=== PATIENT | female | born 1965 | race African-American/Black ===

== ENCOUNTER 2016-09-02 18:31 | Emergency (ER) | payer OTHER ==
[~2016-09-02] VITALS: Ht 157.5 cm; Wt 88.5 kg
[~2016-09-02 18:31] MED LIST: ACETAMINOPHEN325 M1 PO; ALDACTONE50 MG PO; ALLEGRA-D 24 H1 EACH PO; ALPRAZOLAM 0.50.5 M1 PO; BENADRYL25 MG PO; CEFDINIR300 MG PO; CEFUROXIME500 MG PO; CENTRUM COMPLE1 EACH PO; CLARITIN5 MG PO; CLEOCIN HCL300 MG PO; COLACE 100 MG100 MG PO; CYCLOBENZAPRINE5 MG PO; DILAUDID; DILAUDID 2 MG TA2 MG PO; DILAUDID 4 MG TA4 M1 PO; DILAUDID2 M1 PO; DOXYCYCLINE 10100 M2 PO; ERYTHROMYCIN250 M1 PO; FAMOTIDINE20 MG PO; FLEXERIL PO; FLONASE NS; FOLIC ACID1 MG PO; GLYCOLAX POWDER17 G1 PO; GOLYTELY4000 M1; HYDREA 500 MG500 M1 PO; HYDROCODON-ACE1 EAC7 PO; HYDROCODON-ACE1 EACH PO; Hydromorphone Hcl PO; IBUPROFEN 200200 M1 PO; IBUPROFEN 400400 M1 PO; IBUPROFEN 800 MG PO; IBUPROFEN 800800 M1 PO; LAXATIVE PEG 3317 GM PO; MACROBID 100 M100 M1 PO; MEDROL DOSPAK21 TAB PO; MEDROLDOSEPACK PO; MULTIVITAMINS PO; NORCO 5-325 TA1 EACH PO; NORFLEX100 MG PO; ONDANSETRON HCL4 M2 PO; OXYCODONE HCL5 M1 PO; OXYCONTIN 20 MG PO; OXYCONTIN20 MG PO; OXYIR5 MG PO; PEPCID40 MG PO; PERCOCET; PERCOCET 10-321 EACH PO; PERCOCET 5-3251 EACH PO; PHENERGAN 25 MG25 M1 PO; PROMETHAZINE12.5 M1 PO; SENNA; SENNA PO; SERTRALINE HCL25 M2 PO; Tylenol 325MG Caplet PO; VALIUM2 MG PO; ZOFRAN ODT4 MG PO; ZPAK PO
[2016-09-02 19:49] LABS: ABSOLUTE NEUTROPHILS 10.2 thou/uL (1.4-8.2); ABSOLUTE RETIC COUNT 0.1608 10^6/uL; BASOPHILS 0.7 % (0.0-2.0); EOSINOPHILS 3.3 % (0.0-3.0); HEMATOCRIT 31.1 % (37.0-47.0); HEMOGLOBIN 10.7 gm/dL (12.0-15.0); LYMPHOCYTES 16.9 % (24.0-44.0); MCH 30.3 pg (26.0-34.0); MCHC 34.3 g/dL (28.0-37.0); MCV 88.3 fL (80.0-100.0); MONOCYTES 7.8 % (1.0-8.0); OBSERVED RETIC COUNT 4.56 % (0.6-2.6); PLATELET COUNT 324 thou/uL (150-400); POLYS 71.3 % (36.0-66.0); RBC 3.52 mil/uL (4.20-5.00); RDW 15.9 % (10.5-14.5); WBC 14.4 thou/uL (4.0-11.0)
[2016-09-02 19:51] LABS: MANUAL DIFF NO
== END 2016-09-02 21:21 | disposition home or self-care (01) ==
LOC: ER 18:31
PROVIDERS: Emergency Medicine
DX: D57.00 Hb-SS disease with crisis, unspecified (principal); F10.99 Alcohol use, unspecified with unspecified alcohol-induced disorder; Z90.49 Acquired absence of other specified parts of digestive tract; Z91.048 Other nonmedicinal substance allergy status; Z91.018 Allergy to other foods; Z91.040 Latex allergy status; Z88.1 Allergy status to other antibiotic agents; Z88.5 Allergy status to narcotic agent; Z88.0 Allergy status to penicillin; Z88.8 Allergy status to other drugs, medicaments and biological substances

== ENCOUNTER → 2016-09-05 | Outpatient (CLI) | payer OTHER | LOC: ULTRA 08:56 | DX: R60.0 Localized edema (principal) ==

== ENCOUNTER 2016-10-28 16:48 | Emergency (ER) | payer OTHER ==
[~2016-10-28] VITALS: Ht 157.5 cm; Wt 86.2 kg
== END 2016-10-28 21:01 | disposition home or self-care (01) ==
LOC: ER 16:48
DX: D57.00 Hb-SS disease with crisis, unspecified (principal); Z98.51 Tubal ligation status; Z88.0 Allergy status to penicillin; Z88.5 Allergy status to narcotic agent; Z88.2 Allergy status to sulfonamides; Z88.1 Allergy status to other antibiotic agents; Z88.8 Allergy status to other drugs, medicaments and biological substances; Z91.040 Latex allergy status; Z91.018 Allergy to other foods

== ENCOUNTER 2017-03-15 19:07 | Emergency (ER) | payer OTHER ==
[~2017-03-15] VITALS: Ht 157.5 cm; Wt 87.5 kg
[2017-03-15 21:25] VITALS: BP 157/72
[2017-08-16] MEDS ORDERED: SENNA8.6 MG PO (20:02)
[2017-08-16] MEDS ORDERED: HYDROCODONE-AP1 EAC6 PO (20:02)
[2017-08-16] MEDS ORDERED: LIORESAL 10 MG10 MG PO (20:02)
[2017-10-26] MEDS ORDERED: MOBIC15 MG PO (00:19)
== END 2017-03-15 21:27 | disposition home or self-care (01) ==
LOC: ER 19:07
DX: D57.00 Hb-SS disease with crisis, unspecified (principal); Z90.49 Acquired absence of other specified parts of digestive tract; Z96.641 Presence of right artificial hip joint; Z88.0 Allergy status to penicillin; Z88.2 Allergy status to sulfonamides; Z88.1 Allergy status to other antibiotic agents; Z88.8 Allergy status to other drugs, medicaments and biological substances

== ENCOUNTER 2017-06-26 18:58 | Emergency (ER) | payer OTHER ==
[~2017-06-26] VITALS: Ht 157.5 cm; Wt 89.8 kg
[2017-06-26] MEDS ORDERED: FOLIC ACID1 MG PO (19:14)
== END 2017-06-26 19:56 | disposition home or self-care (01) ==
LOC: ER 18:58
DX: H60.93 Unspecified otitis externa, bilateral (principal); Z96.641 Presence of right artificial hip joint; Z90.49 Acquired absence of other specified parts of digestive tract; Z88.0 Allergy status to penicillin; Z88.2 Allergy status to sulfonamides; Z88.1 Allergy status to other antibiotic agents; Z88.5 Allergy status to narcotic agent

== ENCOUNTER 2017-07-18 20:04 | Emergency (ER) | payer OTHER ==
[~2017-07-18] VITALS: Ht 157.5 cm; Wt 87.5 kg
[2017-07-18 20:58] LABS: URINE BILIRUBIN NEGATIVE (Negative); URINE BLOOD NEGATIVE (Negative); URINE CLARITY CLEAR; URINE COLOR YELLOW; URINE GLUCOSE-RANDOM* NEGATIVE (Negative); URINE KETONES NEGATIVE (Negative); URINE NITRITE-REFLEX NEGATIVE (Negative); URINE PROTEIN (DIPSTICK) NEGATIVE (Negative); URINE SPECIFIC GRAVITY 1.025 (1.005-1.035); URINE UROBILINOGEN 0.2 E.U./dl (0.2-1.0)
[2017-07-18 21:00] LABS: URINE LEUKOCYTES-REFLEX TRACE (Negative)
[2017-07-18 21:18] LABS: EOSINOPHILS 3.9 % (0.0-3.0); HEMATOCRIT 31.4 % (37.0-47.0); HEMOGLOBIN 10.7 gm/dL (12.0-15.0); LYMPHOCYTES 29.7 % (24.0-44.0); MCH 30.6 pg (26.0-34.0); MCHC 34.2 g/dL (28.0-37.0); MCV 89.5 fL (80.0-100.0); MONOCYTES 8.9 % (1.0-8.0); PLATELET COUNT 333 thou/uL (150-400); POLYS 56.5 % (36.0-66.0); RBC 3.51 mil/uL (4.20-5.00); RDW 15.8 % (10.5-14.5); WBC 12.4 thou/uL (4.0-11.0)
[2017-07-18 21:23] LABS: CALCIUM 9.4 mg/dL (8.5-10.1); CREATININE 0.6 mg/dL (0.6-1.0); POTASSIUM 3.7 mmol/L (3.5-5.1)
[2017-07-18 21:29] LABS: TOTAL BILIRUBIN 1.4 mg/dL (<0.1-1.0); TOTAL PROTEIN 8.1 g/dL (6.4-8.2)
[2017-07-18] MEDS ORDERED: LEVSIN0.125 MG PO (23:24)
== END 2017-07-18 23:34 | disposition home or self-care (01) ==
LOC: ER 20:04
PROVIDERS: Physician Assistant
DX: K52.9 Noninfective gastroenteritis and colitis, unspecified (principal); Z96.641 Presence of right artificial hip joint; Z88.5 Allergy status to narcotic agent; Z88.0 Allergy status to penicillin; Z88.8 Allergy status to other drugs, medicaments and biological substances

== ENCOUNTER 2018-01-06 20:52 | Emergency (ER) | payer OTHER ==
[~2018-01-06] VITALS: Ht 157.5 cm; Wt 88.0 kg
[~2018-01-06 20:52] MED LIST changes: +HYDROCODONE-AP1 EAC6 PO; +LEVSIN0.125 MG PO; +LIORESAL 10 MG10 MG PO; +MOBIC15 MG PO; +SENNA8.6 MG PO
[2018-01-06 20:58] VITALS: BP 120/67
[2018-01-06] MEDS ORDERED: TESSALON PERLE100 MG PO (21:24)
[2018-01-06] MEDS ORDERED: NORFLEX100 MG PO (21:24)
[2018-01-06] MEDS ORDERED: NAPROSYN500 MG PO (21:24)
== END 2018-01-06 21:39 | disposition home or self-care (01) ==
LOC: ER 20:52
DX: J06.9 Acute upper respiratory infection, unspecified (principal); M54.31 Sciatica, right side; Z96.641 Presence of right artificial hip joint; Z90.49 Acquired absence of other specified parts of digestive tract; Z88.0 Allergy status to penicillin; Z88.2 Allergy status to sulfonamides; Z88.1 Allergy status to other antibiotic agents; Z91.040 Latex allergy status; Z88.8 Allergy status to other drugs, medicaments and biological substances

== ENCOUNTER 2018-06-02 10:28 | Emergency (ER) | payer OTHER ==
[~2018-06-02] VITALS: Ht 157.5 cm; Wt 91.2 kg
[~2018-06-02 10:28] MED LIST changes: +NAPROSYN500 MG PO; +TESSALON PERLE100 MG PO
[2018-06-02] MEDS ORDERED: NORCO 5-325 TA1 EACH PO (12:57)
[2018-06-02 13:00] VITALS: BP 113/34
== END 2018-06-02 13:12 | disposition home or self-care (01) ==
LOC: ER 10:28
DX: S39.012A Strain of muscle, fascia and tendon of lower back, initial encounter (principal); S30.0XXA Contusion of lower back and pelvis, initial encounter; M25.551 Pain in right hip; Z96.641 Presence of right artificial hip joint; Z88.0 Allergy status to penicillin; Z88.1 Allergy status to other antibiotic agents; Z88.5 Allergy status to narcotic agent; Z88.8 Allergy status to other drugs, medicaments and biological substances; Z91.018 Allergy to other foods; Z91.040 Latex allergy status; W10.9XXA Fall (on) (from) unspecified stairs and steps, initial encounter; Y93.89 Activity, other specified; Y92.89 Other specified places as the place of occurrence of the external cause; Y99.8 Other external cause status

== ENCOUNTER 2018-08-02 20:29 | Emergency (ER) | payer OTHER ==
[~2018-08-02] VITALS: Ht 157.5 cm; Wt 93.0 kg
[2018-08-02 20:39] VITALS: BP 127/64
[2018-08-02 20:56] LABS: URINE BILIRUBIN NEGATIVE (Negative); URINE BLOOD TRACE (Negative); URINE CLARITY CLEAR; URINE COLOR YELLOW; URINE GLUCOSE-RANDOM* NEGATIVE (Negative); URINE KETONES NEGATIVE (Negative); URINE NITRITE-REFLEX NEGATIVE (Negative); URINE PROTEIN (DIPSTICK) NEGATIVE (Negative)
[2018-08-02 21:01] LABS: URINE LEUKOCYTES-REFLEX 1+ (Negative)
[2018-08-02 21:05] LABS: CASTS None Seen /LPF (None Seen); MUCUS 0-3 Light strn/LPF (None Seen); SQUAMOUS 0-3 Few /LPF (0-3)
[2018-08-02 21:06] LABS: BACTERIA-REFLEX 1-9 Few /HPF (None Seen); CRYSTALS None Seen /LPF (None Seen); URINE RBC None Seen /HPF (0-2); URINE WBC-REFLEX 6-15 Few /HPF (0-5)
[2018-08-02 21:10] LABS: BASOPHILS 1.2 % (0.0-2.0); EOSINOPHILS 6.1 % (0.0-3.0); HEMATOCRIT 30.7 % (37.0-47.0); HEMOGLOBIN 10.8 gm/dL (12.0-15.0); LYMPHOCYTES 36.6 % (24.0-44.0); MCHC 35.3 g/dL (28.0-37.0); MCV 87.9 fL (80.0-100.0); MONOCYTES 9.8 % (1.0-8.0); PLATELET COUNT 366 thou/uL (150-400); POLYS 46.3 % (36.0-66.0); RBC 3.49 mil/uL (4.20-5.00); RDW 16.1 % (10.5-14.5); WBC 10.8 thou/uL (4.0-11.0)
[2018-08-02 21:23] LABS: CALCIUM 9.4 mg/dL (8.5-10.1); CREATININE 0.7 mg/dL (0.6-1.0); POTASSIUM 3.7 mmol/L (3.5-5.1)
[2018-08-02 21:28] LABS: ALBUMIN 4.1 g/dL (3.4-5.0); TOTAL BILIRUBIN 1.6 mg/dL (<0.1-1.0); TOTAL PROTEIN 8.1 g/dL (6.4-8.2)
[2018-08-02] MEDS ORDERED: MACROBID 100 M100 M1 PO (23:48)
[2018-08-03] MEDS ORDERED: KEFLEX500 M1 PO (00:21)
[2018-08-03 00:35] VITALS: BP 127/77
== END 2018-08-03 00:35 | disposition home or self-care (01) ==
LOC: ER 20:29 → EROBS 22:27 → ER 22:27 → EROBS 08-03 00:35
PROVIDERS: Physician Assistant
DX: N39.0 Urinary tract infection, site not specified (principal); Z88.0 Allergy status to penicillin; Z88.1 Allergy status to other antibiotic agents; Z88.2 Allergy status to sulfonamides; Z88.5 Allergy status to narcotic agent; Z91.040 Latex allergy status; Z88.8 Allergy status to other drugs, medicaments and biological substances; Z98.890 Other specified postprocedural states; Z90.49 Acquired absence of other specified parts of digestive tract; Z96.641 Presence of right artificial hip joint

== ENCOUNTER 2018-09-27 15:29 | Emergency (ER) | payer OTHER ==
[~2018-09-27] VITALS: Ht 157.5 cm; Wt 93.0 kg
[~2018-09-27 15:29] MED LIST changes: +KEFLEX500 M1 PO
[2018-09-27 17:50] LABS: ABSOLUTE NEUTROPHILS 5.3 thou/uL (1.4-8.2); BASOPHILS 0.3 % (0.0-2.0); EOSINOPHILS 5.8 % (0.0-3.0); HEMATOCRIT 29.1 % (37.0-47.0); HEMOGLOBIN 10.2 gm/dL (12.0-15.0); LYMPHOCYTES 29.7 % (24.0-44.0); MCH 31.1 pg (26.0-34.0); MCHC 35.1 g/dL (28.0-37.0); MCV 88.7 fL (80.0-100.0); MONOCYTES 11.5 % (1.0-8.0); PLATELET COUNT 351 thou/uL (150-400); POLYS 52.7 % (36.0-66.0); RBC 3.29 mil/uL (4.20-5.00); RDW 16.1 % (10.5-14.5); WBC 10.1 thou/uL (4.0-11.0)
[2018-09-27 17:53] LABS: CALCIUM 9.1 mg/dL (8.5-10.1); CREATININE 0.8 mg/dL (0.6-1.0); POTASSIUM 3.8 mmol/L (3.5-5.1)
[2018-09-27 18:06] LABS: APTT 47.3 Seconds (24.5-32.8); PROTIME 10.5 Seconds (9.3-11.4)
[2018-09-27] MEDS ORDERED: ZOFRAN ODT4 MG PO (19:11)
[2018-09-27 20:01] VITALS: BP 104/42
== END 2018-09-27 20:18 | disposition home or self-care (01) ==
LOC: ER 15:29
PROVIDERS: Physician Assistant
DX: D57.1 Sickle-cell disease without crisis (principal); Z98.51 Tubal ligation status; Z98.890 Other specified postprocedural states; Z90.49 Acquired absence of other specified parts of digestive tract; Z96.641 Presence of right artificial hip joint; Z91.040 Latex allergy status; Z91.048 Other nonmedicinal substance allergy status; Z88.0 Allergy status to penicillin; Z88.1 Allergy status to other antibiotic agents; Z88.6 Allergy status to analgesic agent; Z88.2 Allergy status to sulfonamides; Z91.09 Other allergy status, other than to drugs and biological substances

== ENCOUNTER 2019-02-06 11:57 | Emergency (ER) | payer OTHER ==
[~2019-02-06] VITALS: Ht 157.5 cm; Wt 90.7 kg
[2019-02-06 13:16] LABS: ABSOLUTE NEUTROPHILS 6.5 thou/uL (1.4-8.2); BASOPHILS 1.4 % (0.0-2.0); EOSINOPHILS 5.2 % (0.0-3.0); HEMATOCRIT 29.7 % (37.0-47.0); HEMOGLOBIN 10.1 gm/dL (12.0-15.0); LYMPHOCYTES 23.3 % (24.0-44.0); MCH 30.9 pg (26.0-34.0); MCHC 34.1 g/dL (28.0-37.0); MCV 90.4 fL (80.0-100.0); MONOCYTES 11.6 % (1.0-8.0); PLATELET COUNT 324 thou/uL (150-400); POLYS 58.5 % (36.0-66.0); RBC 3.29 mil/uL (4.20-5.00); RDW 16.1 % (10.5-14.5); WBC 11.1 thou/uL (4.0-11.0)
[2019-02-06 13:26] LABS: CALCIUM 9.2 mg/dL (8.5-10.1); CREATININE 0.8 mg/dL (0.6-1.0); POTASSIUM 3.8 mmol/L (3.5-5.1)
[2019-02-06 13:27] LABS: ABSOLUTE RETIC COUNT 0.197 10^6/uL; OBSERVED RETIC COUNT 5.97 % (0.6-2.6)
[2019-02-06 13:32] LABS: ALBUMIN 3.9 g/dL (3.4-5.0); TOTAL BILIRUBIN 1.1 mg/dL (<0.1-1.0); TOTAL PROTEIN 8.2 g/dL (6.4-8.2)
[2019-02-06] MEDS ORDERED: PERCOCET 5-3251 EACH PO (14:31)
[2019-02-06 16:01] VITALS: BP 106/52
== END 2019-02-06 16:02 | disposition home or self-care (01) ==
LOC: ER 11:57
PROVIDERS: Emergency Medicine
DX: D57.00 Hb-SS disease with crisis, unspecified (principal); Z90.49 Acquired absence of other specified parts of digestive tract; Z98.890 Other specified postprocedural states; Z88.2 Allergy status to sulfonamides; Z88.0 Allergy status to penicillin; Z88.5 Allergy status to narcotic agent; Z91.040 Latex allergy status; Z88.8 Allergy status to other drugs, medicaments and biological substances

== ENCOUNTER 2019-04-11 16:39 | Emergency (ER) | payer OTHER ==
[~2019-04-11] VITALS: Ht 157.5 cm; Wt 93.4 kg
[2019-04-11 17:24] LABS: URINE BILIRUBIN NEGATIVE (Negative); URINE BLOOD NEGATIVE (Negative); URINE CLARITY CLEAR; URINE COLOR YELLOW; URINE GLUCOSE-RANDOM* NEGATIVE (Negative); URINE KETONES NEGATIVE (Negative); URINE LEUKOCYTES-REFLEX 2+ (Negative); URINE NITRITE-REFLEX NEGATIVE (Negative); URINE PROTEIN (DIPSTICK) NEGATIVE (Negative); URINE UROBILINOGEN >= 8.0 E.U./dl (0.2-1.0)
[2019-04-11 17:29] LABS: SQUAMOUS >10 Many /LPF (0-3)
[2019-04-11 17:30] LABS: BACTERIA-REFLEX 1-9 Few /HPF (None Seen); CASTS None Seen /LPF (None Seen); CRYSTALS None Seen /LPF (None Seen); URINE RBC 0-2 Rare /HPF (0-2); URINE WBC-REFLEX 6-15 Few /HPF (0-5)
[2019-04-11 18:03] LABS: ABSOLUTE NEUTROPHILS 5.4 thou/uL (1.4-8.2); BASOPHILS 0.7 % (0.0-2.0); EOSINOPHILS 6.7 % (0.0-3.0); HEMATOCRIT 31.5 % (37.0-47.0); HEMOGLOBIN 10.8 gm/dL (12.0-15.0); MCH 30.4 pg (26.0-34.0); MCHC 34.2 g/dL (28.0-37.0); MCV 88.9 fL (80.0-100.0); PLATELET COUNT 301 thou/uL (150-400); POLYS 58.6 % (36.0-66.0); RBC 3.55 mil/uL (4.20-5.00); RDW 15.3 % (10.5-14.5); WBC 9.3 thou/uL (4.0-11.0)
[2019-04-11 18:10] LABS: ANION GAP 6 mmol/L (7-16); BUN 13 mg/dL (7-18); CALCIUM 8.6 mg/dL (8.5-10.1); CHLORIDE 102 mmol/L (98-107); CO2 28 mmol/L (21-32); CREATININE 0.7 mg/dL (0.6-1.0); GLUCOSE 100 mg/dL (74-106); POTASSIUM 3.6 mmol/L (3.5-5.1); SODIUM 136 mmol/L (136-145)
[2019-04-11 18:20] LABS: ALBUMIN 3.7 g/dL (3.4-5.0); LIPASE 50 U/L (73-393); SGOT 51 U/L (15-37); SGPT 43 U/L (30-65); TOTAL BILIRUBIN 1.3 mg/dL (<0.1-1.0); TOTAL PROTEIN 7.4 g/dL (6.4-8.2); TROPONIN-I <0.06 ng/mL (<0.06)
[2019-04-11] MEDS ORDERED: PEPCID20 MG PO (20:50)
[2019-04-11 21:52] VITALS: BP 100/52
--- NOTE | 2019-04-13 08:34 | EKG ---
[facility] [place] [address] ELECTROCARDIOGRAM REPORT Name: CATHERINE DALE Room #: DEP [facility]#: [id number] Admission: 04/11/19 Attend Phys: Discharge: 04/11/19 Date of : 67 Report #: [id number] THIS REPORT FOR: cc: FAM - Family physician unknown FAM - Family physician unknown Marvin Thurston MD [facility] THIS REPORT FOR: //name// [facility] ED Test Date: 2019-04-11 Test Time: 17:37:33 Pat Name: CATHERINE DALE Department: Room: Gender: Hired Worker: [employer] : 1965 Requested By: Flaca Aguilar Order Number: [id number] MD: Marvin Thurston Measurements Intervals [place] Rate: 73 P: -2 GA: 199 QRS: -30 QRSD: 115 T: 51 QT: 431 QTc: 475 Interpretive Statements Sinus rhythm Right ventricular conduction delay Nonspecific T wave abnormality Compared to ECG 06/18/2013 02:26:18 No significant change was found Electronically Signed On 04-13-2019 8:33:[address] [employer] by Marvin Thurston [email or web address] <ELECTRONICALLY SIGNED> By: Marvin Thurston MD, FAC 04/13/19 0833 1737 1737 Marvin Thurston MD, [facility] /EPI
== END 2019-04-11 21:45 | disposition home or self-care (01) ==
LOC: ER 16:39
PROVIDERS: Physician Assistant
DX: R10.13 Epigastric pain (principal); Z88.2 Allergy status to sulfonamides; Z88.1 Allergy status to other antibiotic agents; Z91.040 Latex allergy status; Z88.8 Allergy status to other drugs, medicaments and biological substances; Z98.51 Tubal ligation status; Z98.890 Other specified postprocedural states; Z96.641 Presence of right artificial hip joint; Z90.49 Acquired absence of other specified parts of digestive tract